=== PATIENT | male | born 1990 | race African-American/Black ===

== ENCOUNTER 2021-10-31 02:50 | Emergency (ER) | payer OTHER, SELFPAY ==
[2021-10-31 02:45] VITALS: BP 145/94; PULSE 80; RESP 16; TEMP 36.3; O2SAT 100
[2021-10-31] MEDS: TETANUS,DIPHTHERIA,AC PERTUSSIS ADULT (0.5 ML) BOOSTRIX IM (03:21)
--- NOTE | 2021-10-31 04:14 | ED.WOUNDLAC ---
HPI - Wound/Laceration General Chief Complaint: Wound/Laceration Stated Complaint: R EARLOBE LACERATION Time Seen by Provider: 10/31/21 02:56 History of Present Illness HPI narrative: Patient is a 31-year-old male who presents ER with laceration to his right ear. He was lifting weights in his living room when he sat up and caught his ear on the weight lifting mechanism. He tore open a hole. No additional injury. Did not lose consciousness. No difficulty hearing. Unknown last tetanus shot. Related Data Allergies Allergy/AdvReac Type Severity Reaction Status Date / Time No Known Allergies Allergy Verified 10/31/21 03:00 Review of Systems Constitutional: Constitutional: Denies chills and Denies fever(s) ENT: Denies vertigo Comments: No change in hearing Integumentary/Breasts: Skin/Breast: Denies erythema and Denies rash Comments: Laceration right ear PMFSH Past Medical History Medical History (Updated 10/31/21 @ 04:20 by Pedro Tovar MD) Healthy adult male Surgical History Surgical History (Updated 10/31/21 @ 04:20 by Pedro Tovar MD) No history of previous surgery Social History Social History (Updated 10/31/21 @ 04:20 by Pedro Tovar MD) Smoking status: Never smoker Exam Narrative: GENERAL: Well-appearing, well-nourished, and in no acute distress. HEAD: Normocephalic, atraumatic. EYES: PERRL and EOMI. ENT: Mucous membranes moist. Laceration of the right ear through the antihelix through and through 1.5 cm anteriorly to centimeters posteriorly damaging the cartilage. NECK: Supple. NEURO: No focal deficits. Alert and oriented x3. PSYCH: Normal mood and affect. Course Course Emergency Course: Patient tolerated repair. Tetanus updated discharge home. Vital Signs Vital signs: Vital Signs Temperature 97.4 F L 10/31/21 02:45 Pulse Rate 80 10/31/21 02:45 Respiratory Rate 16 10/31/21 02:45 Blood Pressure 145/94 H 10/31/21 02:45 Pulse Oximetry 100 10/31/21 02:45 Oxygen Delivery Room Air 10/31/21 02:45 Temperature 97.4 F L 10/31/21 02:45 Pulse Rate 80 10/31/21 02:45 Respiratory Rate 16 10/31/21 02:45 Blood Pressure 145/94 H 10/31/21 02:45 Pulse Oximetry 100 10/31/21 02:45 Oxygen Delivery Room Air 10/31/21 02:45 Procedures Laceration Laceration 1: Date: 10/31/21 Time: 03:55 Site: other (right ear posterior) Size (cm): 2 Description: linear Depth: [id number] Local Anesthetic: lidocaine 1% Amount of anesthesia used (mL): 8 (regional block) Pre-repair: wound explored and irrigated extensively ====== Skin Level ====== Skin layer closed with: nylon Size (cm): 5-0 Number of sutures: 4 Technique: simple, interrupted ====== Subcutaneous Layer ====== Subcutaneous layer closed with: vicryl Size: 5-0 Number of sutures: 1 ====== Muscle Layer ====== ====== Tendon Layer ====== Laceration 2: Date: 10/31/21 Time: 04:00 Site: other (right ear anterior) Size (cm): 1.5 Description: linear Depth: [id number] Local Anesthetic: lidocaine 1% Amount of anesthesia used (mL): 8 (same regional block as previous.) Pre-repair: wound explored and irrigated extensively ====== Skin Level ====== Skin layer closed with: nylon Size (cm): 5-0 Number of sutures: 4 Technique: simple, interrupted ====== Subcutaneous Layer ====== ====== Muscle Layer ====== ====== Tendon Layer ====== Discharge Plan Discharge Clinical Impression: Laceration of ear Patient Disposition: Home, Self-Care Condition: Stable Instructions: Care For Your Stitches (ED) Additional Instructions: You suffered a laceration of your right ear that went through the cartilage of the ear. Follow-up with plastic surgery listed bel
== END 2021-10-31 04:30 | disposition home or self-care (01) ==
PROVIDERS: Emergency Provider Emergency Medicine
DX: S01.311A Laceration without foreign body of right ear, initial encounter (principal); Z23 Encounter for immunization; W22.8XXA Striking against or struck by other objects, initial encounter; Y93.B3 Activity, free weights
CPT/HCPCS: 12011; 12051; 90471; 90715; 99282